=== PATIENT | male | born 1960 | race Two or more races ===

== ENCOUNTER 2018-10-28 16:11 | Emergency (ER) | payer MEDICAID ==
[~2018-10-28] VITALS: Ht 172.7 cm; Wt 118.0 kg
[2018-10-28] MEDS ORDERED: LIDOCAINE 1%/EPI 1:100,000 10 ML VIAL IJ ONE (17:15)
[2018-10-28] MEDS ORDERED: TETANUS, DIPHTHERIA, PERTUSSIS VAC/PF 0.5ML (>7YR OLD) IM ONE (17:15)
[2018-10-28] MEDS ORDERED: HYDROCODONE/ACETAMINOPHEN 5/325MG TABLET PO ONE (17:15)
[2018-10-28] MEDS ORDERED: BACITRACIN ZINC OINT UDPKT TOP ONE (17:15)
[2018-10-28 17:51] VITALS: BP 175/76
[2018-10-28] MEDS ORDERED: LIDOCAINE HCL/EPINEPHRINE 1%-EPI 1:100,000 20 ML VIAL IJ NR (17:57)
== END 2018-10-28 18:57 | disposition home or self-care (01) ==
LOC: ER 16:11
DX: L02.415 Cutaneous abscess of right lower limb (principal); F17.200 Nicotine dependence, unspecified, uncomplicated; E78.00 Pure hypercholesterolemia, unspecified; I10 Essential (primary) hypertension; Z98.890 Other specified postprocedural states
CPT/HCPCS: 10060; 90471; 90715; 99283; J3490; Z7610

== ENCOUNTER 2018-10-30 09:33 | Emergency (ER) | payer MEDICAID ==
[~2018-10-30] VITALS: Ht 172.7 cm; Wt 118.0 kg
[2018-10-30] MEDS ORDERED: BACITRACIN ZINC OINT UDPKT TOP ONE (10:15)
[2018-10-30 10:30] VITALS: BP 148/74
== END 2018-10-30 10:49 | disposition home or self-care (01) ==
LOC: ER 09:33
DX: Z48.00 Encounter for change or removal of nonsurgical wound dressing (principal)
CPT/HCPCS: 99282

== ENCOUNTER 2022-08-13 20:11 | Inpatient (IN) | payer MEDICARE, MEDICAID ==
[~2022-08-13] VITALS: Ht 172.7 cm; Wt 120.4 kg
[2022-08-14] MEDS ORDERED: FUROSEMIDE 40MG/4ML VIAL IV ONE (04:30)
[2022-08-14 04:37] LABS: BASOPHILS % 1.1 % (0.0-2.0); EOSINOPHILS % 4.5 % (0.0-5.0); HEMOGLOBIN. 12.4 g/dL (14.0-18.0); LYMPHOCYTES % 39.1 % (20.0-50.0); MEAN CORPUSCULAR HEMOGLOBIN 29.8 pg (28.0-32.0); MEAN CORPUSCULAR VOLUME 89.1 fL (80.0-94.0); MEAN PLATELET VOLUME 8.2 fl (7.4-10.4); MONOCYTES % 11.6 % (2.0-8.0); NEUTROPHILS % 43.7 % (40.0-76.0); PLATELET 195 x1000/uL (130-400); RED BLOOD CELL COUNT 4.16 mill/uL (4.7-6.1); RED CELL DISTRIBUTION WIDTH 14.1 % (11.6-14.6)
[2022-08-14 04:45] LABS: CHLORIDE 105 mEq/L (98-107)
[2022-08-14] MEDS ORDERED: DOCUSATE SODIUM 100MG CAPSULE PO PRN (06:00)
[2022-08-14] MEDS ORDERED: MAGNESIUM/ALUMINUM HYDROXIDE/SIMETHICONE 30ML UDC PO PRN (06:00)
[2022-08-14] MEDS ORDERED: GUAIFENESIN 200MG/10ML SUGAR FREE UDC PO PRN (06:00)
[2022-08-14] MEDS ORDERED: CLONIDINE 0.1MG TABLET PO PRN (06:00)
[2022-08-14] MEDS ORDERED: ACETAMINOPHEN 325MG TABLET PO PRN (06:00)
[2022-08-14] MEDS ORDERED: CEFTRIAXONE 1 G PREMIX 50 ML IV SCH (06:00)
[2022-08-14 06:51] LABS: CREATINE KINASE MB FRACTION 1.4 ng/mL (0.5-3.6)
[2022-08-14] MEDS: OMEPRAZOLE 20MG CAPSULE EXTENDED RELEASE PO SCH ×2 (07:09→08:38)
[2022-08-14 07:58] LABS: CLARITY URINE CLEAR (CLEAR); COLOR URINE YELLOW (YELLOW); KETONES URINE NEGATIVE (NEGATIVE); LEUKOCYTE ESTERASE URINE TRACE (NEGATIVE); NITRITE URINE POSITIVE (NEGATIVE); OCCULT BLOOD URINE NEGATIVE (NEGATIVE); PH URINE 6.5 (4.5-8.0); PROTEIN URINE NEGATIVE (NEGATIVE); UROBILINOGEN URINE 0.2 E.U./dL (0.2-1.0)
[2022-08-14 08:42] LABS: *AMPHETAMINES SCREEN URINE PRESUMTIVE POSITIVE (NEGATIVE); *BARBITURATES SCREEN URINE NEGATIVE (NEGATIVE); *BENZODIAZEPINES SCREEN URINE NEGATIVE (NEGATIVE); *COCAINE SCREEN URINE NEGATIVE (NEGATIVE); CANNABINOID URINE SCREEN NEGATIVE (NEGATIVE); METHADONE URINE SCREEN NEGATIVE (NEGATIVE); OPIATES URINE SCREEN NEGATIVE (NEGATIVE); PHENCYCLIDINE URINE SCREEN NEGATIVE (NEGATIVE)
[2022-08-14] MEDS: ASPIRIN 81MG TABLET PO SCH (08:46)
[2022-08-14] MEDS: FUROSEMIDE 40MG/4ML VIAL IV SCH ×2 (08:46→18:39)
[2022-08-14] MEDS: TAMSULOSIN HCL 0.4MG SR CAPSULE PO SCH (08:47)
[2022-08-14] MEDS: ISOSORBIDE MONONITRATE 30MG TABLET SR 24HR PO SCH (08:48)
[2022-08-14] MEDS: METOPROLOL TARTRATE 25MG TABLET PO SCH ×2 (08:48→18:39)
[2022-08-14] MEDS: AMIODARONE HCL 200 MG TABLET PO SCH ×2 (08:49→18:40)
[2022-08-14] MEDS ORDERED: ENOXAPARIN 30MG/0.3ML SYR SUBCUT SCH (09:00)
[2022-08-14] MEDS: ENOXAPARIN 30MG/0.3ML SYR SUBCUT SCH ×2 (10:32→21:48)
[2022-08-14] MEDS: BETHANECHOL CHLORIDE 25 MG TABLET PO SCH ×2 (12:33→21:05)
[2022-08-14 19:36] LABS: CREATINE KINASE MB FRACTION 1.1 ng/mL (0.5-3.6)
[2022-08-14] MEDS ORDERED: ASPI-1497 PO (23:55)
[2022-08-14] MEDS ORDERED: AMLO5TAB88 PO (23:55)
[2022-08-14] MEDS ORDERED: SACU1TAB7 PO (23:55)
[2022-08-14] MEDS ORDERED: OMEP20TA23 PO (23:55)
[2022-08-14] MEDS ORDERED: AMIO100T4 PO (23:55)
[2022-08-14] MEDS ORDERED: BETH5TAB10 PO (23:55)
[2022-08-14] MEDS ORDERED: POTA-205 PO (23:55)
[2022-08-14] MEDS ORDERED: TAMS-11 PO (23:55)
[2022-08-14] MEDS ORDERED: MECL-159 PO (23:55)
[2022-08-14] MEDS ORDERED: METO-396 PO (23:55)
[2022-08-14] MEDS ORDERED: ISOS30TA12 PO (23:55)
[2022-08-14] MEDS ORDERED: FURO40TA5 PO (23:55)
[2022-08-14 23:56] VITALS: BP 133/66
[2022-08-15 00:03] VITALS: BP 133/66
[2022-08-15] MEDS: BETHANECHOL CHLORIDE 25 MG TABLET PO SCH ×4 (00:59→18:20)
[2022-08-15] MEDS ORDERED: *PATIENT'S OWN MEDICATION STORAGE XX SCH (01:00)
[2022-08-15] MEDS ORDERED: HYDROCODONE/ACETAMINOPHEN 5/325MG TABLET PO NR (01:15)
[2022-08-15 04:03] VITALS: BP 136/61
[2022-08-15] MEDS: CEFTRIAXONE 1,000 MG in DEXTROSE 5% WATER 50 ML IV SCH (05:13)
[2022-08-15 06:39] LABS: HEMATOCRIT. 37.2 % (42.0-52.0); HEMOGLOBIN. 12.5 g/dL (14.0-18.0); MEAN CORPUSCULAR HEMOGLOBIN 30.1 pg (28.0-32.0); MEAN CORPUSCULAR VOLUME 89.9 fL (80.0-94.0); MEAN PLATELET VOLUME 8.9 fl (7.4-10.4); PLATELET 183 x1000/uL (130-400); RED BLOOD CELL COUNT 4.14 mill/uL (4.7-6.1); RED CELL DISTRIBUTION WIDTH 13.9 % (11.6-14.6)
[2022-08-15 07:15] LABS: CHLORIDE 108 mEq/L (98-107)
[2022-08-15 07:46] LABS: T4 FREE 1.11 ng/dL (0.76-1.46)
[2022-08-15 08:00] VITALS: BP 120/51
[2022-08-15] MEDS ORDERED: POTASSIUM CHLORIDE 20MEQ TABLET SR PO NR (08:15)
[2022-08-15] MEDS: ENOXAPARIN 30MG/0.3ML SYR SUBCUT SCH ×2 (09:14→20:26)
[2022-08-15] MEDS: ASPIRIN 81MG TABLET PO SCH (09:15)
[2022-08-15] MEDS: OMEPRAZOLE 20MG CAPSULE EXTENDED RELEASE PO SCH (09:15)
[2022-08-15] MEDS: ISOSORBIDE MONONITRATE 30MG TABLET SR 24HR PO SCH (09:15)
[2022-08-15] MEDS: TAMSULOSIN HCL 0.4MG SR CAPSULE PO SCH ×2 (09:15→09:16)
[2022-08-15] MEDS: FUROSEMIDE 40MG/4ML VIAL IV SCH ×2 (09:15→18:21)
[2022-08-15] MEDS: METOPROLOL TARTRATE 25MG TABLET PO SCH ×2 (09:16→18:20)
[2022-08-15] MEDS: AMIODARONE HCL 200 MG TABLET PO SCH ×2 (09:25→18:20)
[2022-08-15 10:24] LABS: PLATELET ESTIMATE NORMAL
[2022-08-15 11:41] LABS: PHOSPHORUS 3.8 mg/dL (2.5-4.9)
[2022-08-15 12:00] VITALS: BP 103/52
[2022-08-15 14:08] VITALS: BP 103/52
[2022-08-15] MEDS: FAMOTIDINE 20MG TABLET PO SCH (18:20)
[2022-08-15 20:03] VITALS: BP 104/52
[2022-08-16] MEDS: BETHANECHOL CHLORIDE 25 MG TABLET PO SCH ×4 (00:03→18:06)
[2022-08-16 00:05] VITALS: BP 112/58
[2022-08-16 04:00] VITALS: BP 126/71
[2022-08-16] MEDS: CEFTRIAXONE 1,000 MG in DEXTROSE 5% WATER 50 ML IV SCH (05:16)
[2022-08-16 06:32] LABS: CHLORIDE 104 mEq/L (98-107)
[2022-08-16 06:41] LABS: HEMATOCRIT. 38.7 % (42.0-52.0); MEAN CORPUSCULAR HEMOGLOBIN 29.9 pg (28.0-32.0); MEAN CORPUSCULAR VOLUME 89.3 fL (80.0-94.0); MEAN PLATELET VOLUME 9.2 fl (7.4-10.4); PLATELET 207 x1000/uL (130-400); RED BLOOD CELL COUNT 4.34 mill/uL (4.7-6.1); RED CELL DISTRIBUTION WIDTH 13.3 % (11.6-14.6)
[2022-08-16 08:00] VITALS: BP 109/71
[2022-08-16] MEDS: FAMOTIDINE 20MG TABLET PO SCH ×2 (09:54→18:05)
[2022-08-16] MEDS: METOPROLOL TARTRATE 25MG TABLET PO SCH ×2 (09:54→17:00)
[2022-08-16] MEDS: ASPIRIN 81MG TABLET PO SCH (09:54)
[2022-08-16] MEDS: ISOSORBIDE MONONITRATE 30MG TABLET SR 24HR PO SCH (09:54)
[2022-08-16] MEDS: TAMSULOSIN HCL 0.4MG SR CAPSULE PO SCH (09:55)
[2022-08-16] MEDS: ENOXAPARIN 30MG/0.3ML SYR SUBCUT SCH ×2 (09:56→20:37)
[2022-08-16] MEDS: AMIODARONE HCL 200 MG TABLET PO SCH ×2 (09:56→18:09)
[2022-08-16] MEDS: FUROSEMIDE 40MG/4ML VIAL IV SCH ×2 (09:56→18:06)
[2022-08-16 09:57] LABS: PLATELET ESTIMATE NORMAL
[2022-08-16 12:00] VITALS: BP 82/34
[2022-08-16] MEDS ORDERED: FURO80TA3 PO (15:16)
[2022-08-16 16:00] VITALS: BP 107/43
[2022-08-16 20:00] VITALS: BP 114/60
[2022-08-17] VITALS: BP 116/50
[2022-08-17] MEDS: BETHANECHOL CHLORIDE 25 MG TABLET PO SCH ×2 (00:15→05:08)
[2022-08-17 04:00] VITALS: BP 117/55
[2022-08-17] MEDS: CEFTRIAXONE 1,000 MG in DEXTROSE 5% WATER 50 ML IV SCH (05:08)
[2022-08-17 08:00] VITALS: BP 120/57
[2022-08-17] MEDS ORDERED: LIDOCAINE 5% PATCH TOP NR (09:00)
[2022-08-17] MEDS: TAMSULOSIN HCL 0.4MG SR CAPSULE PO SCH (09:50)
[2022-08-17] MEDS: AMIODARONE HCL 200 MG TABLET PO SCH (09:50)
[2022-08-17] MEDS: ASPIRIN 81MG TABLET PO SCH (09:50)
[2022-08-17] MEDS: METOPROLOL TARTRATE 25MG TABLET PO SCH (09:51)
[2022-08-17] MEDS: FAMOTIDINE 20MG TABLET PO SCH (09:51)
[2022-08-17] MEDS: ISOSORBIDE MONONITRATE 30MG TABLET SR 24HR PO SCH (09:51)
[2022-08-17] MEDS: ENOXAPARIN 30MG/0.3ML SYR SUBCUT SCH (09:52)
[2022-08-17] MEDS: FUROSEMIDE 40MG/4ML VIAL IV SCH (10:01)
[2022-08-17 10:42] VITALS: BP 120/57
== END 2022-08-17 11:33 | disposition home health service (06) | DRG 871 ==
LOC: ER 20:11 → MICUSO 08-14 05:59 → EDBEDREQTM 08-14 06:04 → EDBEDREQ 08-14 06:04 → 7WST 08-14 23:42
PROVIDERS: ADMIT Hospitalist; ATTEND Hospitalist
DX: A41.9 Sepsis, unspecified organism (principal); I50.23 Acute on chronic systolic (congestive) heart failure; N39.0 Urinary tract infection, site not specified; L03.90 Cellulitis, unspecified; N40.0 Benign prostatic hyperplasia without lower urinary tract symptoms; E88.09 Other disorders of plasma-protein metabolism, not elsewhere classified; I11.0 Hypertensive heart disease with heart failure; E87.6 Hypokalemia; S92.355A Nondisplaced fracture of fifth metatarsal bone, left foot, initial encounter for closed fracture; E78.00 Pure hypercholesterolemia, unspecified; E78.5 Hyperlipidemia, unspecified; F17.200 Nicotine dependence, unspecified, uncomplicated; Z79.82 Long term (current) use of aspirin; Z79.899 Other long term (current) drug therapy; Z87.440 Personal history of urinary (tract) infections; Z95.810 Presence of automatic (implantable) cardiac defibrillator; X58.XXXA Exposure to other specified factors, initial encounter; Y93.89 Activity, other specified; Y92.89 Other specified places as the place of occurrence of the external cause; Y99.8 Other external cause status
CPT/HCPCS: 36415; 71045; 73630; 80053; 80305; 81003; 82550; 82553; 83605; 83735; 83880; 84100; 84145; 84439; 84481; 84484; 85025; 85379; 93005; 93306; 93970; 97116; 97162; 97166; 97535; 99285; J0696; J1650; J1940; J7060

== ENCOUNTER 2023-03-21 13:29 | Emergency (ER) | payer MEDICARE, MEDICAID ==
[~2023-03-21] VITALS: Ht 177.8 cm; Wt 101.0 kg
[~2023-03-21 13:29] MED LIST: AMIO100T4 PO; AMLO5TAB88 PO; ASPI-1497 PO; BETH5TAB10 PO; FURO80TA3 PO; ISOS30TA12 PO; MECL-159 PO; METO-396 PO; OMEP20TA23 PO; POTA-205 PO; SACU1TAB7 PO; TAMS-11 PO
[2023-03-21 13:53] VITALS: O2SAT 100
[2023-03-21] MEDS ORDERED: ACETAMINOPHEN 325MG TABLET PO ONE (14:00)
[2023-03-21] MEDS ORDERED: ACET-2708 MT (16:07)
[2023-03-21] MEDS ORDERED: ACETAMINOPHEN 325MG TABLET PO NR (16:45)
[2023-03-21 16:54] VITALS: BP 124/61; PULSE 74; RESP 18; TEMP 97.4
== END 2023-03-21 16:55 | disposition home or self-care (01) ==
LOC: ER 13:47
DX: M25.562 Pain in left knee (principal); I10 Essential (primary) hypertension
CPT/HCPCS: 73560; 99283